=== PATIENT | female | born 1955 | race African-American/Black ===

== ENCOUNTER 2016-11-23 06:10 | Emergency (ER) | payer MEDICARE, OTHER ==
[2016-11-23] MEDS ORDERED: BUPIVACAINE HCL 0.5%-EPI 1:200000 INJ/PF 30 ML VIAL INJ ONE (06:35)
[2016-11-23] MEDS ORDERED: COCAINE HCL 4% TOPICAL SOLN 4 ML TP ONE (06:35)
[2016-11-23] MEDS ORDERED: CLONIDINE HCL 0.1 MG TABLET PO ONE (06:49)
--- NOTE | 2016-11-23 07:24 | ER Document Report ---
ED General - General Chief Complaint: Nose Bleed Stated Complaint: NOSE BLEED Time Seen by Provider: 11/23/16 06:22 - HPI Patient complains to provider of: Nosebleed Notes: Patient coming in with a history of nosebleeds. Patient states most of this is whether induced nosebleeds. Patient also was noted to have elevated blood pressure. Patient denies history of hypertension in the past. Patient states she has had to have Rhino Rocket in the past. Patient denies any trauma to the nose or to the face. Patient denies being on any blood pressure medications. Upon my evaluation patient is holding a towel to her nose nose is actively bleeding. Most of the blood is coming out the right nare. Denies any airways issues patient is talking normal voice. Past Medical History - Social History Smoking Status: Unknown if Ever Smoked Family History: Reviewed & Not Pertinent Review of Systems - Review of Systems Constitutional: No symptoms reported EENT: Other - Nosebleed Cardiovascular: No symptoms reported Respiratory: No symptoms reported Gastrointestinal: No symptoms reported Genitourinary: No symptoms reported Female Genitourinary: No symptoms reported Musculoskeletal: No symptoms reported Skin: No symptoms reported Hematologic/Lymphatic: No symptoms reported Neurological/Psychological: No symptoms reported Physical Exam - Vital signs Vitals: Resp BP Pulse Ox 24 H 210/122 H 96 11/23/16 06:17 11/23/16 06:17 11/23/16 06:17 Interpretation: Hypertensive - General General appearance: Appears well, Alert - HEENT Head: Normocephalic, Atraumatic Eyes: Normal Conjunctiva: Normal Cornea: Normal Extraocular movements intact: Yes Eyelashes: Normal Pupils: PERRL Nasal: Epistaxis - Blood coming out of the right nare - Respiratory Respiratory status: No respiratory distress Chest status: Nontender Breath sounds: Normal Chest palpation: Normal - Cardiovascular Rhythm: Regular Heart sounds: Normal auscultation Murmur: No - Abdominal Inspection: Normal Distension: No distension Bowel sounds: Normal Tenderness: Nontender Organomegaly: No organomegaly - Back Back: Normal, Nontender - Extremities General upper extremity: Normal inspection, Nontender, Normal color, Normal ROM , Normal temperature General lower extremity: Normal inspection, Nontender, Normal color, Normal ROM , Normal temperature, Normal weight bearing. No: Aubrie's sign - Neurological Neuro grossly intact: Yes Cognition: Normal Orientation: AAOx4 Vicki Coma Scale Eye Opening: Spontaneous [place] Coma Scale Verbal: Oriented [place] Coma Scale Motor: Obeys Commands Vicki Coma Scale Total: 15 Speech: Normal Motor strength normal: LUE, RUE, LLE, RLE Sensory: Normal - Psychological Associated symptoms: Normal affect, Normal mood - Skin Skin Temperature: Warm Skin Moisture: Dry Skin Color: Normal Course - Re-evaluation Re-evalutation: 11/23/16 07:32 Patient blew her nose clearing out the nasal cavity. No one source of bleeding was identified and instilled multiple cotton balls instilled with cocaine and Sensorcaine with epinephrine and a nasal clip was placed on the patient. We will hold this for approximately 30 minutes if bleeding stops patient will be discharged home if not will progress to a nasal tampon and will discharge patient home to follow-up with ENT. - Vital Signs Vital signs: Temp Pulse Resp BP Pulse Ox 13 166/114 H 96 11/23/16 08:15 11/23/16 08:15 11/23/16 08:15 Discharge - Discharge Clinical Impression: Nosebleed Hypertension Qualifiers: Hypertension type: essential hypertension Qualified Code(s): I10 - Essential ( primary) hypertension Condition: Good Disposition: HOME, SELF-CARE Instructions: High Blood Pressure, Requiring Treatment ([facility]), Nosebleed Instructions ([facility]) Additional Instructions: Avoid any blowing of her nose wiping of her nose or digitally inspecting her nose. If your nose does start to bleed again please use the nasal clip that we gave you here in the ER apply pressure for 30 minutes he may also try to place a cold rag on her nose. I recommend follow-up with ENT doctor provided if you have access to the [facility] I was also suggest calling them to see another ENT coverage. Return to the ER symptoms worsen. Your blood pressure today is elevated which can also contribute to your nosebleed. I will start you on a medication called clonidine however is very important that she continue to monitor your blood pressure and follow-up with your primary care physician in the next 2 weeks. Prescriptions: Clonidine HCl 0.1 mg PO BID #60 tablet Referrals: ADAN DURAN FNP [Primary Care Provider] - Follow up in 3-5 days ENT [Provider Group] - Follow up in 3-5 days
[2016-11-23 09:37] VITALS: BP 159/139
== END 2016-11-23 09:37 | disposition home or self-care (01) ==
LOC: ER 06:10
DX: R04.0 Epistaxis (principal); I10 Essential (primary) hypertension
CPT/HCPCS: 99283; 96374; J3490 ×2; A9270

== ENCOUNTER → 2016-11-29 | Outpatient (CLI) | payer MEDICARE, OTHER ==
[2016-11-29 14:08] LABS: ABSOLUTE BASOPHILS # (AUTO) 0.1 10^3/uL (0.0-0.2); ABSOLUTE EOSINOPHILS # (AUTO) 0.2 10^3/uL (0.0-0.6); ABSOLUTE LYMPHOCYTES (AUTO) 1.9 10^3/uL (0.5-4.7); ABSOLUTE MONOCYTES (AUTO) 0.3 10^3/uL (0.1-1.4); ABSOLUTE NEUT (AUTO) 2.1 10^3/uL (1.7-8.2); BASOPHILS % (AUTO) 2.2 % (0-2); EOSINOPHILS % (AUTO) 4.5 % (0-6); HEMOGLOBIN 11.7 g/dL (12.0-15.5); HGB HCT DIFFERENCE 0.1; LYMPHOCYTES % (AUTO) 41.6 % (13-45); MEAN CORPUSCULAR HEMOGLOBIN 29.2 pg (27.0-33.4); MEAN CORPUSCULAR HGB CONC 33.4 g/dL (32.0-36.0); MEAN CORPUSCULAR VOLUME 87 fl (80-97); MONOCYTES % (AUTO) 6.9 % (3-13); RED BLOOD COUNT 4.01 10^6/uL (3.72-5.28); RED CELL DISTRIBUTION WIDTH 14.9 % (11.5-14.0); SEGMENTED NEUTROPHILS % (AUTO) 44.8 % (42-78); WHITE BLOOD COUNT 4.6 10^3/uL (4.0-10.5)
[2016-11-29 14:29] LABS: ALANINE AMINOTRANSFERASE 25 U/L (9-52); ALBUMIN 4.4 g/dL (3.5-5.0); ALKALINE PHOSPHATASE 96 U/L (38-126); ANION GAP 10 (5-19); ASPARTATE AMINO TRANSFERASE 24 U/L (14-36); BILIRUBIN,DIRECT 0.3 mg/dL (0.0-0.4); BILIRUBIN,TOTAL 0.4 mg/dL (0.2-1.3); BLOOD UREA NITROGEN 13 mg/dL (7-20); CALCIUM 9.9 mg/dL (8.4-10.2); CARBON DIOXIDE 27 mmol/L (22-30); CHLORIDE 105 mmol/L (98-107); CHOLESTEROL 158.53 mg/dL (0-200); CREATININE RESULT 0.93 mg/dL (0.52-1.25); Direct HDL 48 mg/dL (>40); GLUCOSE 106 mg/dL (75-110); POTASSIUM 4.7 mmol/L (3.6-5.0); SODIUM 141.8 mmol/L (137-145); TOTAL PROTEIN 6.9 g/dL (6.3-8.2); TRIGLYCERIDES 136 mg/dL (<150)
[2016-11-29 14:40] LABS: DIRECT LDL 31 mg/dL (<100)
== END ==
LOC: OD 12:56
PROVIDERS: ATTEND Internal Medicine
DX: I10 Essential (primary) hypertension (principal); Z13.220 Encounter for screening for lipoid disorders; R73.9 Hyperglycemia, unspecified; Z13.29 Encounter for screening for other suspected endocrine disorder
CPT/HCPCS: 36415; 80053; 80061; 83036; 84443; 85025

== ENCOUNTER → 2016-12-11 | Outpatient (CLI) | payer MEDICARE, OTHER ==
--- NOTE | 2016-12-14 10:00 | XCELERA REPORT ---
[address] [address] Transthoracic Echocardiogram Report Name: JENA PRESCOTT Age: 61 yrs Gender: Female : 1955 Patient Status: Outpatient Patient Location: Study Date: 12/11/2016 01:19 PM Height: 66 in Weight: 200 lb BSA: 2.0 m2 Procedure: A complete two-dimensional transthoracic echocardiogram was performed (2D, M-mode, spectral and color flow Doppler). The study was technically difficult with many images being suboptimal in quality. Reason For Study: HYPERTENSION Ordering Physician: ARSALAN SCHWARTZ Performed By: Jada Granados Interpretation Summary The left ventricular ejection fraction is within normal limits. There is mild concentric left ventricular hypertrophy. The left ventricle is grossly normal size. Doppler measurements suggest pseudonormalized left ventricular relaxation, which is associated with grade II/IV or mild to moderate diastolic dysfunction Wall motion cannot be accurately commented on, but no definite regional wall motion abnormalities noted. The right ventricular systolic function is normal. The left atrium is mildly dilated. The right atrium is normal in size There is a trace amount of mitral regurgitation There is no mitral valve stenosis. No aortic regurgitation is present. There is no aortic valve stenosis There is a trace to mild amount of tricuspid regurgitation There is mild pulmonary hypertension by echo Right ventricular systolic pressure is estimated to be elevated at 30- 40mmHg. The aortic root is not well visualized but is probably normal size. The inferior vena cava appeared normal and decreased > 50% with respiration (RAP 5-10 mmHg) Minimal pericardial effusion. MMode/2D Measurements & Calculations RVDd: 3.1 cm LVIDd: 4.5 cmFS: 35.1 % Ao root diam: 3.6 cm IVSd: 1.2 cm LVIDs: 2.9 cmEDV(Teich): 93.7 ml LVPWd: 1.2 cmESV(Teich): 33.3 ml Ao root area: 10.1 cm2 EF(Teich): 64.5 % LA dimension: 3.3 cm LVOT diam: 2.3 cm LVOT area: 4.2 cm2 Doppler Measurements & Calculations MV E max madalyn: MV P1/2t max madalyn: Ao V2 max: LV V1 max P.5 cm/sec 74.5 cm/sec 137.6 cm/sec 3.9 mmHg MV A max madalyn: MV P1/2t: 56.8 msec Ao max PG: LV V1 max: 87.4 cm/sec MVA(P1/2t): 3.9 cm2 7.6 mmHg 98.2 cm/sec MV E/A: 0.84 MV dec slope: DARBY(V,D): 3.0 cm2 384.2 cm/sec2 PA V2 max: TR max madalyn: 95.3 cm/sec 263.7 cm/sec PA max PG: TR max P.8 mmHg 3.6 mmHg Left Ventricle The left ventricle is grossly normal size. There is mild concentric left ventricular hypertrophy. The left ventricular ejection fraction is within normal limits. Doppler measurements suggest pseudonormalized left ventricular relaxation, which is associated with grade II/IV or mild to moderate diastolic dysfunction. Wall motion cannot be accurately commented on, but no definite regional wall motion abnormalities noted. Right Ventricle Borderline right ventricular enlargement. There is normal right ventricular wall thickness. The right ventricular systolic function is normal. Atria The right atrium is normal in size. The left atrium is mildly dilated. Interarterial septum not well visualized and not well dopplered. Cannot comment on ASD/PFO presence. Mitral Valve The mitral valve leaflets are sclerotic, but show no functional abnormalities. There is no mitral valve stenosis. There is a trace amount of mitral regurgitation. Aortic Valve The aortic valve opens well. There is no aortic valve stenosis. No aortic regurgitation is present. Tricuspid Valve The tricuspid valve is not well visualized, but is grossly normal. There is no tricuspid stenosis. There is a trace to mild amount of tricuspid regurgitation. There is mild pulmonary hypertension by echo. Right ventricular systolic pressure is estimated to be elevated at 30-40mmHg. Pulmonic Valve The pulmonic valve is not well visualized. Great Vessels The aortic root is not well visualized but is probably normal size. The inferior vena cava appeared normal and decreased > 50% with respiration (RAP 5-10 mmHg). Effusions Minimal pericardial effusion. : ARSALAN SCHWARTZ > José Miguel Ariza
== END ==
LOC: SP 13:03
PROVIDERS: ATTEND Internal Medicine
DX: I10 Essential (primary) hypertension (principal)
CPT/HCPCS: 93306